=== PATIENT | male | born 1990 | race Caucasian/White ===

== ENCOUNTER 2017-09-28 00:49 | Emergency (ER) | payer SELFPAY ==
[2017-09-28 00:49] VITALS: BMI 24.4
[2017-09-28] MEDS ORDERED: Albuterol-Ipratrop 3 mg / 0.5 (3 ml) UD IH STA ×3 (01:25→02:26)
[2017-09-28] MEDS ORDERED: Albuterol-Ipratrop 3 mg / 0.5 (3 ml) UD ONE ×2 (01:30→02:33)
--- NOTE | 2017-09-28 01:32 | ED PDOC ---
HPI: SOB/CHF/COPD Time Seen by Provider: 09/28/17 01:09 Chief Complaint (Nursing): Shortness Of Breath Chief Complaint (Provider): shortness of breath History Per: Patient History/Exam Limitations: no limitations Onset/Duration Of Symptoms: Days (1) Current Symptoms Are (Timing): Still Present Additional History Per: Patient Additional Complaint(s): 27 y/o male history of asthma presents with shortness of breath x 1 day. Associated chest tightness. Patient states he has been with nonproductive cough x 1 week, but tonight noted difficulty breathing, which prompted ED visit. Denies fever, nausea/vomiting, palpitations, leg pain/swelling, recent travel. Past Medical History Reviewed: Historical Data, Nursing Documentation, Vital Signs Vital Signs: Last Vital Signs Temp 98.9 F 09/28/17 01:06 Pulse 126 H 09/28/17 01:06 Resp 24 09/28/17 01:06 BP 140/79 09/28/17 01:06 Pulse Ox 96 09/28/17 03:19 - Medical History PMH: Asthma Denies: Chronic Kidney Disease - Surgical History Surgical History: No Surg Hx - Family History Family History: States: No Known Family Hx - Social History Current smoker - smoking cessation education provided: No Drugs: Denies - Home Medications Home Medications: Ambulatory Orders Medication Instructions Recorded Albuterol Sulfate [Albuterol 3 ml IH Q4 #0 ayden 11/29/14 Sulfate 60 ml] Azithromycin [Zithromax] 500 mg PO DAILY #7 tab 11/29/14 Albuterol 0.083% [Albuterol 1 vial IH Q6 PRN #30 vial 09/28/17 Sulfate 3 Ml] Albuterol HFA [Ventolin HFA 90 1 - 2 puff IH Q4 PRN #1 inh 09/28/17 mcg/actuation (8 g)] Mask, Face [Nebulizer Aerosol Mask 1 dev INH PRN PRN #1 dev 09/28/17 Adult] Nebulizer [Compact Compressor 1 dev XX Q6 PRN #1 dev 09/28/17 Nebulizer] predniSONE [Prednisone] 60 mg PO DAILY #12 tab 09/28/17 - Allergies Allergies/Adverse Reactions: Allergies Allergy/AdvReac Type Severity Reaction Status Date / Time avocado AdvReac VOMITING Verified 09/28/17 01:15 FISH AdvReac VOMITING Verified 09/28/17 01:16 strawberry AdvReac VOMITING Verified 09/28/17 01:15 Review of Systems ROS Statement: Except As Marked, All Systems Reviewed And Found Negative Cardiovascular: Positive for: Chest Pain Respiratory: Positive for: Cough, Shortness of Breath, Wheezing Physical Exam - Reviewed Nursing Documentation Reviewed: Yes Vital Signs Reviewed: Yes - Physical Exam Appears: Positive for: Well, Non-toxic, No Acute Distress Head Exam: Positive for: ATRAUMATIC, NORMAL INSPECTION, NORMOCEPHALIC Skin: Positive for: Normal Color Eye Exam: Positive for: Normal appearance ENT: Positive for: Normal ENT Inspection Cardiovascular/Chest: Positive for: Regular Rate, Rhythm Respiratory: Positive for: Decreased Breath Sounds, Wheezing Gastrointestinal/Abdominal: Positive for: Normal Exam Back: Positive for: Normal Inspection Extremity: Positive for: Normal ROM Neurologic/Psych: Positive for: Alert, Oriented - Laboratory Results Result Diagrams: 09/28/17 01:35 09/28/17 01:35 - ECG ECG: Positive for: Viewed By Me (reviewed by ED attending) ECG Rhythm: Positive for: Sinus Tachycardia O2 Sat by Pulse Oximetry: 96 - Progress ED Course And Treament: labs, ekg, chest xray, duonebs, IV solumedrol On re-eval, patient still with elevated HR in 110's-120's, O2 94% on 2L NC; CTA ordered to rule out PE EXAM: CT Angiography Chest With Intravenous Contrast EXAM DATE/TIME: Exam ordered 09/28/2017 2:29 AM CLINICAL HISTORY: 27 years old, male; Pain; Chest pain; Additional info: Chest pain, SOB TECHNIQUE: Axial computed tomographic angiography images of the chest with intravenous contrast using pulmonary embolism protocol. All CT scans at this facility use one or more dose reduction techniques, viz.: automated exposure control; ma/kV adjustment per patient size (including targeted exams where dose is matched to indication; i.e. head); or iterative reconstruction technique. CONTRAST: 95 mL of [id number] administered intravenously. COMPARISON: CT - ANGIO CHEST PE PROTOCOL 2014-11-29 02:56 FINDINGS: Pulmonary arteries: There is no evidence of peripheral filling defects within the pulmonary arterial circulation to suggest pulmonary embolism. Aorta: No acute findings. No thoracic aortic aneurysm. Lungs: There are bilateral perihilar areas of groundglass opacification which is nonspecific and may represent atypical infection. Pleural space: Normal. No significant effusion. No pneumothorax. Heart: Normal. No cardiomegaly. No significant pericardial effusion. No evidence of RV dysfunction. Thyroid: The visualized thyroid gland is unremarkable. Bones/joints: The spine, sternum, ribs, and pectoral girdles are normal. No acute fracture. No dislocation. Soft tissues: See above. Lymph nodes: Normal. No enlarged lymph nodes. Upper abdomen: The visualized intra-abdominal structures are normal. IMPRESSION: 1. There are bilateral perihilar areas of groundglass opacification which are nonspecific and may represent atypical infection. Clinical correlation is advised. 2. There is no CT evidence of acute pulmonary embolism. On re-eval, patient states symptoms slightly improved. Case discussed with ED attending Dr. Oneil, will trial IV magnesium sulfate dose. 5:00 Patient resting comfortably. Patient denies chest tightness, shortness of breath. Wheezing resolved. Vitals improved. Patient offered placement in observation for asthma exacerbation, but states he is feeling better and would like to be discharged instead. Patient given rx Prednisone, Albuterol HFA, Albuterol neb. Advised follow up PMD 2-3 days. Return to ED for worsening/concerning symptoms. Disposition - Clinical Impression Clinical Impression: Asthma attack - Patient ED Disposition Is Patient to be Admitted: No Counseled Patient/Family Regarding: Studies Performed, Diagnosis, Need For Followup, Rx Given - Disposition Referrals: [facility] [Outside] Disposition: Routine/Home Disposition Time: 05:01 Condition: IMPROVED Prescriptions: Albuterol 0.083% [Albuterol Sulfate 3 Ml] 1 vial IH Q6 PRN #30 vial PRN Reason: Wheezing Albuterol HFA [Ventolin HFA 90 mcg/actuation (8 g)] 1 - 2 puff IH Q4 PRN #1 inh PRN Reason: Wheezing Mask, Face [Nebulizer Aerosol Mask Adult] 1 dev INH PRN PRN #1 dev PRN Reason: Wheezing Nebulizer [Compact Compressor Nebulizer] 1 dev XX Q6 PRN #1 dev PRN Reason: Wheezing predniSONE [Prednisone] 60 mg PO DAILY #12 tab Instructions: Asthma (ED) Forms: [employer] ([place])
[2017-09-28 01:50] LABS: BASO % 0.3 % (0.0-2.0); EOS # 0.5 K/uL (0.0-0.7); EOS % 4.9 % (0.0-4.0); HEMATOCRIT 47.3 % (35.0-51.0); LYMPH # 1.5 K/uL (1.0-4.3); LYMPH % 15.3 % (20.0-40.0); MEAN CELL VOLUME 83.9 fl (80.0-94.0); MEAN CORPUSCULAR HEMOGLOBIN 28.3 pg (27.0-31.0); MEAN CORPUSCULAR HGB CONC 33.7 g/dL (33.0-37.0); MEAN PLATELET VOLUME 8.7 fl (7.2-11.7); MONO # 0.6 K/uL (0.0-0.8); MONO % 5.9 % (0.0-10.0); NEUT % 73.6 % (50.0-75.0); RED CELL DISTRIBUTION WIDTH 13.2 % (11.5-14.5); WHITE BLOOD COUNT 9.5 K/uL (4.8-10.8)
[2017-09-28 02:01] LABS: ALKALINE PHOSPHATASE 88 U/L (38-126); ALT/SGPT 60 U/L (21-72); AST/SGOT 33 U/L (17-59); BILIRUBIN,TOTAL 0.4 mg/dl (0.2-1.3); BLOOD UREA NITROGEN 23 mg/dl (9-20); CALCIUM 9.3 mg/dL (8.4-10.2); CARBON DIOXIDE 27 mmol/L (22-30); CHLORIDE 104 mmol/L (98-107); GFR AFRICAN-AMERICAN > 60; GLUCOSE,RANDOM 139 mg/dL (75-110); POTASSIUM 3.8 MMOL/L (3.6-5.0); SODIUM 144 mmol/l (132-148); TOTAL PROTEIN 8.4 G/DL (6.3-8.2)
[2017-09-28 02:08] LABS: ALB/GLOB RATIO 1.2 (1.0-2.1)
[2017-09-28] MEDS ORDERED: Iodixanol 320 MG/ML 100 ML BOTTLE IV ONE (02:38)
[2017-09-28] MEDS ORDERED: Sodium Chloride 0.9% 50 ML IV ONE (02:38)
[2017-09-28] MEDS ORDERED: Magnesium Sulfate 2 GM in Sodium Chloride 0.9% 100 ML IVPB STA (03:44)
[2017-09-28 05:13] VITALS: BP 138/77; PULSE 101; RESP 20; TEMP 97.8; O2SAT 97
--- NOTE | 2017-09-28 09:18 | CT ---
PROCEDURE: CT Chest with contrast (Pulmonary Angiogram) HISTORY: chest pain, SOB COMPARISON: CT PE study dated 11/29/2014. TECHNIQUE: Axial computed tomography images were obtained of the chest in the pulmonary arterial phase of enhancement. Coronal and sagittal reformatted images were created and reviewed. Intravenous contrast dose: 95 mL Visipaque 320 Radiation dose: Total exam DLP = 439.4 mGy-cm. This CT exam was performed using one or more of the following dose reduction techniques: Automated exposure control, adjustment of the mA and/or kV according to patient size, and/or use of iterative reconstruction technique. FINDINGS: PULMONARY ARTERIES: Unremarkable. No pulmonary embolism. AORTA: No acute findings. No thoracic aortic aneurysm. LUNGS: Nonspecific bilateral perihilar, peripheral right lower lobe and lingular areas of ground-glass opacification. PLEURAL SPACES: Unremarkable. No effusion or pneuomothorax. HEART: Unremarkable. No cardiomegaly. No significant pericardial effusion. LYMPH NODES: No lymphadenopathy. BONES, CHEST WALL: Unremarkable. No fracture or destructive lesion OTHER FINDINGS: Unremarkable. IMPRESSION: Nonspecific bilateral perihilar, peripheral right lower lobe and lingular areas of ground-glass opacification which may represent atypical infection. Clinical correlation is recommended.
--- NOTE | 2017-09-28 09:58 | RAD ---
HISTORY: cough, chest pain, sob COMPARISON: Chest radiograph dated 11/29/2014. TECHNIQUE: Chest PA and lateral FINDINGS: LUNGS: No active pulmonary disease. PLEURA: No significant pleural effusion identified. No pneumothorax apparent. CARDIOVASCULAR: Normal. OSSEOUS STRUCTURES: No significant abnormalities. VISUALIZED UPPER ABDOMEN: Normal. OTHER FINDINGS: None. IMPRESSION: No active disease.
--- NOTE | 2017-09-28 21:11 | CARD ---
APPROVED REPORT EKG Measurement Heart [id number] <Conclusion> Sinus tachycardia Otherwise normal ECG
== END 2017-09-28 05:19 | disposition home or self-care (01) ==
LOC: H.ER 00:49
DX: J45.909 Unspecified asthma, uncomplicated (principal)
CPT/HCPCS: 71020; 71275; 80053; 84484; 85025; 93005; 94150; 94640; 96374; 99285; J2930; J3475; Q9967

== ENCOUNTER 2017-11-07 18:33 | Emergency (ER) | payer SELFPAY ==
[2017-11-07 18:33] VITALS: BMI 24.4
[2017-11-07 18:45] VITALS: TEMP 98.4
[2017-11-07] MEDS ORDERED: Albuterol-Ipratrop 3 mg / 0.5 (3 ml) UD INH STA ×2 (18:50)
[2017-11-07] MEDS ORDERED: Albuterol-Ipratrop 3 mg / 0.5 (3 ml) UD IH STA (18:50)
--- NOTE | 2017-11-07 18:51 | ED PDOC ---
HPI: SOB/CHF/COPD Time Seen by Provider: 11/07/17 18:49 Chief Complaint (Nursing): Shortness Of Breath Chief Complaint (Provider): Dyspnea History Per: Patient History/Exam Limitations: no limitations Onset/Duration Of Symptoms: Days (yesterday) Additional Complaint(s): Pt. with wheezes, dyspnea, chest tightness. Feels like his asthma. Does not have any meds at home. Cough, congestion, runny nose, yellow phlegm. Weakness all over and body aches. No abd pain, nausea, vomit, diarrhea. No headaches, dizziness. Here Thanksgiving time and had same issues. Past Medical History Reviewed: Nursing Documentation, Vital Signs Vital Signs: Last Vital Signs Temp 98.4 F 11/07/17 18:43 Pulse 127 H 11/07/17 18:43 Resp 22 11/07/17 18:43 BP 152/89 H 11/07/17 18:43 Pulse Ox 90 L 11/07/17 18:59 - Medical History PMH: Asthma Denies: Chronic Kidney Disease - Surgical History Surgical History: No Surg Hx - Family History Family History: States: Unknown Family Hx - Living Arrangements Living Arrangements: With Family - Social History Current smoker - smoking cessation education provided: No Alcohol: None - Home Medications Home Medications: Ambulatory Orders Medication Instructions Recorded Albuterol Sulfate [Albuterol 3 ml IH Q4 #0 ayden 11/29/14 Sulfate 60 ml] Azithromycin [Zithromax] 500 mg PO DAILY #7 tab 11/29/14 Albuterol 0.083% [Albuterol 1 vial IH Q6 PRN #30 vial 09/28/17 Sulfate 3 Ml] Albuterol HFA [Ventolin HFA 90 1 - 2 puff IH Q4 PRN #1 inh 09/28/17 mcg/actuation (8 g)] Mask, Face [Nebulizer Aerosol Mask 1 dev INH PRN PRN #1 dev 09/28/17 Adult] Nebulizer [Compact Compressor 1 dev XX Q6 PRN #1 dev 09/28/17 Nebulizer] predniSONE [Prednisone] 60 mg PO DAILY #12 tab 09/28/17 Albuterol Sulfate [Proair Hfa] 0.09 mg IH Q6H PRN #2 inh 11/07/17 predniSONE [predniSONE Tab] 20 mg PO BID 5 Days tab 11/07/17 - Allergies Allergies/Adverse Reactions: Allergies Allergy/AdvReac Type Severity Reaction Status Date / Time avocado AdvReac VOMITING Verified 11/07/17 18:40 FISH AdvReac VOMITING Verified 11/07/17 18:40 strawberry AdvReac VOMITING Verified 11/07/17 18:40 Review of Systems ROS Statement: Except As Marked, All Systems Reviewed And Found Negative ENT: Positive for: Nose Pain, Nose Discharge, Nose Congestion Respiratory: Positive for: Cough, Shortness of Breath, Sputum, Wheezing Musculoskeletal: Positive for: Other (body aches) Neurological: Positive for: Weakness Physical Exam - Reviewed Nursing Documentation Reviewed: Yes Vital Signs Reviewed: Yes - Physical Exam Appears: Positive for: Uncomfortable Head Exam: Positive for: ATRAUMATIC, NORMAL INSPECTION, NORMOCEPHALIC Skin: Positive for: Normal Color, Warm, DRY Eye Exam: Positive for: EOMI, Normal appearance, PERRL ENT: Positive for: Nasal Congestion. Negative for: Tonsillar Exudate Neck: Positive for: Normal, Painless ROM, Supple Cardiovascular/Chest: Positive for: Regular Rate, Rhythm. Negative for: Edema Respiratory: Positive for: Decreased Breath Sounds, Wheezing (diffuse). Negative for: Accessory Muscle Use Gastrointestinal/Abdominal: Positive for: Normal Exam, Bowel Sounds, Soft. Negative for: Tenderness Back: Positive for: Normal Inspection. Negative for: L CVA Tenderness, R CVA Tenderness Extremity: Positive for: Normal ROM. Negative for: Tenderness, Pedal Edema Neurologic/Psych: Positive for: Alert, Oriented. Negative for: Motor/Sensory Deficits - Laboratory Results Result Diagrams: 11/07/17 19:26 11/07/17 19:26 Interpretation Of Abn Labs: no acute - ECG ECG: Positive for: Interpreted By Me, Viewed By Dc ECG Rhythm: Positive for: Sinus Tachycardia (mild) O2 Sat by Pulse Oximetry: 90 (94 with nasal) Pulse Ox Interpretation: Abnormal - Radiology X-Ray: Read By Radiologist X-Ray Interpretation: No Acute Disease - Progress ED Course And Treament: 2221: Pulsox 90-92% on RA. Will need 24hr obs for further eval and tx. Spoke with Dr. Thompson. Will admit tele obs. 2230: Pt. refusing to stay in the hospital. Aware of possible or decreased functioning from asthma attack. Is aaox3. Pain free. Has capacity to make decisions. Family at bedside and agree with pt. decision. Mini Mental Status Exam intact. - Critical Care Total Time (In Min): 30 Documented Critical Care: Time excludes all time spent performint seperately billable procedures Disposition - Clinical Impression Clinical Impression: Asthma exacerbation - Patient ED Disposition Is Patient to be Admitted: Yes Counseled Patient/Family Regarding: Studies Performed, Diagnosis, Rx Given - Disposition Referrals: [facility] [Outside] - 11/08/17 Disposition: Against Medical Advice Disposition Time: 22:23 Condition: FAIR Additional Instructions: You are going against medical advice. You need to stay in the hospital for further treatment and evaluation of your asthma. You can or have decreased functioning from your asthma flare up. Come back right away for further evaluation. Prescriptions: Albuterol Sulfate [Proair Hfa] 0.09 mg IH Q6H PRN #2 inh PRN Reason: Wheezing predniSONE [predniSONE Tab] 20 mg PO BID 5 Days tab Instructions: Asthma (ED) - POA Present On Arrival: None
[2017-11-07] MEDS ORDERED: Sodium Chloride 0.9% 1,000 ML IV SCH (19:00)
[2017-11-07 19:31] LABS: BASO % 0.3 % (0.0-2.0); EOS # 0.6 K/uL (0.0-0.7); EOS % 6.6 % (0.0-4.0); HEMOGLOBIN 16.2 g/dL (12.0-18.0); LYMPH # 1.5 K/uL (1.0-4.3); LYMPH % 17.7 % (20.0-40.0); MEAN CELL VOLUME 84.4 fl (80.0-94.0); MEAN CORPUSCULAR HEMOGLOBIN 28.1 pg (27.0-31.0); MEAN CORPUSCULAR HGB CONC 33.3 g/dL (33.0-37.0); MEAN PLATELET VOLUME 8.7 fl (7.2-11.7); MONO # 0.6 K/uL (0.0-0.8); MONO % 7.3 % (0.0-10.0); NEUT # 5.9 K/uL (1.8-7.0); NEUT % 68.1 % (50.0-75.0); NRBC % 0.2 % (0.0-0.0); RBC 5.76 Mil/uL (4.40-5.90); RED CELL DISTRIBUTION WIDTH 13.1 % (11.5-14.5); WHITE BLOOD COUNT 8.6 K/uL (4.8-10.8)
[2017-11-07 19:39] LABS: ALB/GLOB RATIO 1.3 (1.0-2.1); ALBUMIN 4.6 g/dL (3.5-5.0); ALT/SGPT 67 U/L (21-72); AST/SGOT 36 U/L (17-59); BLOOD UREA NITROGEN 17 mg/dl (9-20); CALCIUM 9.4 mg/dL (8.4-10.2); GFR AFRICAN-AMERICAN > 60; GFR NON-AFRICAN AMERICAN > 60; MAGNESIUM 1.8 MG/DL (1.6-2.3)
[2017-11-07 19:42] LABS: PARTIAL THROMBOPLASTIN TIME 26.9 Seconds (25.6-37.1); PROTHROMBIN TIME 11.6 Seconds (9.8-13.1)
[2017-11-07 19:44] LABS: ABG ALLEN TEST YES; ARTERIAL BLOOD GAS HCO3 24.4 mmol/L (21-28); ARTERIAL BLOOD GAS O2 SAT 98.5 % (95-98); ARTERIAL BLOOD GAS PCO2 35 mm/Hg (35-45); ARTERIAL BLOOD GAS PH 7.43 (7.35-7.45); ARTERIAL BLOOD GAS PO2 70 mm/Hg (80-100); ARTERIAL BLOOD GAS TCO2 24.3 mmol/L (22-28)
[2017-11-07] MEDS ORDERED: Magnesium Sulfate 2 gm/50 ml 2 GM/50 ML BAG IVPB ONE (22:22)
[2017-11-07 23:40] VITALS: BP 130/70; PULSE 105; RESP 23; O2SAT 92
--- NOTE | 2017-11-08 09:17 | RAD ---
HISTORY: Sepsis Patient COMPARISON: 11/28/2016 FINDINGS: LUNGS: No active pulmonary disease. PLEURA: No significant pleural effusion identified, no pneumothorax apparent. CARDIOVASCULAR: Normal. OSSEOUS STRUCTURES: No significant abnormalities. VISUALIZED UPPER ABDOMEN: Normal. OTHER FINDINGS: None. IMPRESSION: No active disease.
--- NOTE | 2017-11-08 10:34 | CARD ---
APPROVED REPORT EKG Measurement Heart [id number] <Conclusion> Sinus tachycardia Otherwise normal ECG
== END 2017-11-07 23:40 | disposition left against medical advice (07) ==
LOC: H.ER 18:33
DX: J45.901 Unspecified asthma with (acute) exacerbation (principal)
CPT/HCPCS: 71045; 80053; 82803; 83735; 84100; 84484; 85025; 85610; 85730; 87040; 87804; 93005; 94640; 96374; 96375; 99284; J2930